=== PATIENT | male | born 1995 | race Caucasian/White ===

== ENCOUNTER 2017-01-26 21:43 | Emergency (ER) | payer SELFPAY ==
[2017-01-26 22:02] VITALS: BP 110/77
--- NOTE | 2017-01-26 23:11 | ERNOTE ---
ENT HPI Date of Service: 01/26/17 Presenting Symptoms: other - sorethroat Source: patient - Immun/Allergies/Home Medications Immunizations: IMMUNIZATION HX Immunizations Up to Date Yes History of Influenza Vaccine No Hx Pneumococcal Vaccination No Allergies/Adverse Reactions: Allergies Allergy/AdvReac Type Severity Reaction Status Date / Time Penicillins Allergy Verified 01/26/17 22:02 Home Medications: HOME MEDICATIONS Albuterol Sulfate [Albuterol Sulfate 2.5 MG/3 ML] 2.5 mg IH Q4H 01/26/17 [Last Taken Unknown] - History of Present Illness Narrative: 21 year old that has had a sore throat for two days, which is getting worse. No complaints of fevers, chills or ear pain. There has been a runny nose. Severity: Present: mild ENT Location: Present: throat Prearrival Treatment: Present: no prearrival treatment Modifying Factors - Improves: Reports: nothing Modifying Factors - Worsens: Reports: nothing Associated Symptoms - ENT: Reports: denies symptoms Review of Systems - Review of Systems Constitutional: Present: no symptoms reported EYE: Present: no symptoms reported ENT: Present: See HPI Respiratory: Present: no symptoms reported Cardiology: Present: no symptoms reported Gastrointestinal/Abdominal: Present: no symptoms reported Genitourinary: Present: no symptoms reported Musculoskeletal: Present: no symptoms reported Skin: Present: no symptoms reported Neurological: Present: no symptoms reported Endocrine: Present: no symptoms reported Hematologic/Lymphatic: Present: no symptoms reported Psych: Present: no symptoms reported - Patient's Past Medical History Patient History - Medical: GERD, Migraines Patient History - Cardiac/Respiratory: Asthma Patient History - Cancer: No Hx of Cancer Patient History - Surgical Procedures: Other Patient History - Other: None - Family History Mother Family History - Medical: History Unknown Father Family History - Medical: Diabetes Type 1 Family History - Cardiac/Respiratory: Hypertension - Social History Living Situations: home Abuse History: No History of abuse Psych History: No pertinent hx Smoking Status: Current every day smoker Alcohol Use: occasionally Drug Use: none - Immunizations Immunizations Up to Date: Yes Hx Pneumococcal Vaccination: No History of Influenza Vaccine: No Physical Exam - Physical Exam General Appearance: Present: no apparent distress Eye Exam: Normal inspection: bilateral, PERRL: bilateral Ears, Nose, Throat: Present: normal ENT inspection Neck: Present: normal inspection Respiratory: Present: no respiratory distress Gastrointestinal/Abdominal: Present: nondistended Back Exam: Present: normal inspection Extremity Exam: Present: normal inspection Neurological Exam: Present: alert, oriented, normal mood/affect Skin Exam: Present: normal color ED Progress - Results and Orders Patient's Lab Results:: I have reviewed the patient's lab results. - Vital Signs Patient's Vital Signs:: I have reviewed the patient's vital signs. Vital Signs: Vital Signs 01/26/17 21:59 Temperature 36.7 C Pulse Rate 85 Respiratory 16 Rate Blood Pressure 110/77 O2 Sat by Pulse 99 Oximetry - Progress/Reassessment Chief Complaint: Sore Throat Progress:: Unchanged Departure Clinical Impression: Pharyngitis - Departure Disposition: Home self-care Condition: Good Instructions: Pharyngitis, [id number] Print Language: Panamanian Additional Instructions: Follow up with your physician as needed. Gargle with salt water as needed. you can take Tylenol or Motrin for pain relief.
--- OUTSIDE RECORDS SUMMARY | 2017-01-26 23:15 | XMS REPORT | Continuity of Care Document ---
:1995 Author Organization [facility] ([facility]) Address [address] [place] [address] Phone [phone] Care Team Providers Name Role Phone [facility] Primary Care Provider [phone] Source Comments This disclosure is being made pursuant to the Care Everywhere program, applicable federal and state laws, and may not contain all informaitonavailable regarding this patient.[facility] ([facility]) Active Allergies and Adverse Reactions Allergen Noted Date Severity Reactions Comments Penicillins 03/08/2010 Rash Current Medications Prescription Sig. Disp. Refills Start Date End Date Status ALBUTEROL INHL use by inhalation. Active docusate (COLACE) 100 Take 1 Cap by mouth 2 60 Cap 1 11/14/2011 Active mg capsule times daily. Indications: Constipation aspirin 325 mg EC Take 1 Tab by mouth 60 Tab 0 11/14/2011 Active tablet daily. Indications: dvt proph hydrOXYzine pamoate Take 1-2 Caps by 60 Cap 0 11/28/2011 Active (VISTARIL) 25 mg mouth 4 times daily capsule as needed for Other. 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 Pulse 112 11/14/2011 8:00 AM WATER QUALITY CONTROL ENGINEER Temperature 37.3 C (99.1 F) 11/14/2011 8:00 AM WATER QUALITY CONTROL ENGINEER Respiratory Rate 20 11/14/2011 11:19 AM WATER QUALITY CONTROL ENGINEER Height 1.778 m (5' 10") 11/13/2011 10:20 AM WATER QUALITY CONTROL ENGINEER Weight 80.4 kg (177 lb 4 oz) 11/13/2011 10:20 AM WATER QUALITY CONTROL ENGINEER Body Mass Index 25.43 11/13/2011 10:20 AM WATER QUALITY CONTROL ENGINEER Oxygen Saturation 99% 11/14/2011 8:00 AM WATER QUALITY CONTROL ENGINEER Plan of Care Health Maintenance Due Date Last Done Comments Hepatitis B Vaccine (1 of 3 - Primary Series) 1994 HPV Vaccine (1 of 3 - Male 3 Dose Series) 2005 Tdap Vaccine 2005 Lipid Disorder Screening 2012 MMR Vaccine 2012 Td Vaccine 2012 Varicella Vaccine (1 of 2 - Adult - No Evidence of 2012 Immunity) Influenza Vaccine: Seasonal (#1) 05/13/2016 Results from Last 3 Months Not on file
== END 2017-01-26 23:12 | disposition home or self-care (01) ==
LOC: ER 21:43
DX: J02.9 Acute pharyngitis, unspecified (principal); F17.210 Nicotine dependence, cigarettes, uncomplicated; J45.909 Unspecified asthma, uncomplicated

== ENCOUNTER 2017-03-13 14:17 | Emergency (ER) | payer OTHER ==
--- NOTE | 2017-03-13 15:51 | ERNOTE ---
Upper Extremity HPI - Narrative Date of Service: 03/13/17 - General Time Seen by Provider: 03/13/17 15:40 Source: patient, family Exam Limitations: no limitations - Immun/Allergies/Home Medications Immunizations: IMMUNIZATION HX Immunizations Up to Date Yes History of Influenza Vaccine No Hx Pneumococcal Vaccination No Allergies/Adverse Reactions: Allergies Allergy/AdvReac Type Severity Reaction Status Date / Time Penicillins Allergy Verified 03/13/17 14:39 Home Medications: HOME MEDICATIONS Albuterol Sulfate [Albuterol Sulfate 2.5 MG/3 ML] 2.5 mg IH Q4H 01/26/17 [Last Taken Unknown] - History of Present Illness Narrative: pt smashed his left hand this am at work and complains of left hand pain. Review of Systems - Review of Systems Constitutional: Present: no symptoms reported EYE: Present: no symptoms reported ENT: Present: no symptoms reported Respiratory: Present: no symptoms reported Cardiology: Present: no symptoms reported Gastrointestinal/Abdominal: Present: no symptoms reported Genitourinary: Present: no symptoms reported Musculoskeletal: Present: See HPI - Patient's Past Medical History Patient History - Medical: GERD, Migraines Patient History - Cardiac/Respiratory: Asthma Patient History - Cancer: No Hx of Cancer Patient History - Surgical Procedures: Other Patient History - Other: None - Family History Mother Family History - Medical: History Unknown Father Family History - Medical: Diabetes Type 1 Family History - Cardiac/Respiratory: Hypertension - Social History Living Situations: home Abuse History: No History of abuse Psych History: No pertinent hx Smoking Status: Current every day smoker Alcohol Use: occasionally Drug Use: none - Immunizations Immunizations Up to Date: Yes Hx Pneumococcal Vaccination: No History of Influenza Vaccine: No Physical Exam - Physical Exam General Appearance: Present: wd/wn, alert, no apparent distress Respiratory: Present: no respiratory distress, normal breath sounds, no accessory muscle use, chest nontender, lungs clear Cardiovascular/Chest: Present: regular rate, rhythm, no murmur, normal peripheral pulses Extremity Exam: Present: other - there is slight flexion of the left pinky finger at the PIP joint of left hand also there is a blood filled vesicle at the tip of the pinky digit ED Progress - Vital Signs Patient's Vital Signs:: I have reviewed the patient's vital signs. Vital Signs: Vital Signs 03/13/17 14:35 Temperature 37.2 C Pulse Rate 100 Respiratory 16 Rate Blood Pressure 119/71 O2 Sat by Pulse 97 Oximetry - X-Ray X-Ray #1 X-Ray: hand - Progress/Reassessment Chief Complaint: Hand Injury/Pain Plan - Plan Plan: case discussed with Dr. Clark. will immobilize and send to clinic Departure Clinical Impression: Fracture of proximal phalanx of digit of left hand Qualifiers: Encounter type: initial encounter Fracture type: closed Qualified Code(s): S62.619A - Displaced fracture of proximal phalanx of unspecified finger, initial encounter for closed fracture - Departure Disposition: Home self-care Condition: Good Instructions: Crush Injury, Fingers or Toes, [id number] Additional Instructions: please follow up with Dr. Clark in clinic on Friday03/18/17
--- OUTSIDE RECORDS SUMMARY | 2017-03-13 15:56 | XMS REPORT | Continuity of Care Document ---
:1995 Author Organization [facility] ([facility]) Address [address] [place] [address] Phone [phone] Care Team Providers Name Role Phone [facility] Primary Care Provider [phone] Source Comments This disclosure is being made pursuant to the Care Everywhere program, applicable federal and state laws, and may not contain all informaitonavailable regarding this patient.[facility] (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
[2017-03-13 17:17] VITALS: BP 108/69
== END 2017-03-13 17:10 | disposition home or self-care (01) ==
LOC: ER 14:17
PROC: 2W3FX1Z Immobilization of Left Hand using Splint (ICD-10-PCS; principal; 2017-03-13)
DX: S62.619A Displaced fracture of proximal phalanx of unspecified finger, initial encounter for closed fracture (principal); X58.XXXA Exposure to other specified factors, initial encounter; Y93.9 Activity, unspecified; Y92.9 Unspecified place or not applicable; Y99.0 Civilian activity done for income or pay; Z72.0 Tobacco use

== ENCOUNTER 2017-04-27 18:00 | Emergency (ER) | payer SELFPAY ==
[2017-04-27 18:25] LABS: Hematocrit 45.9 % (42.0-52.0); Hemoglobin 15.8 gm/dL (13.5-18.0); Mean Cell Volume 86.1 fl (78-100); Mean Corpuscular Hemoglobin 29.6 pg (27-31); Mean Corpuscular Hgb Conc 34.4 g/dl (32-36); Mean Platelet Volume 9.6 fl (6.0-9.5); Neutrophil # 4.8 K/mm3 (1.3-6.0); Neutrophil % 64.6 % (42-75.0); Platelet Count 270 K/mm3 (150-450); Red Blood Count 5.33 M/mm3 (4.7-6.0); Red Cell Distribution Width 11.9 % (11.5-14.0); White Blood Count 7.5 K/mm3 (4.0-10.5)
[2017-04-27 18:39] LABS: Urine Appearance Clear; Urine Bilirubin Negative (NEGATIVE); Urine Blood Negative /ul (NEGATIVE); Urine Color Yellow; Urine Ketone Negative (NEGATIVE); Urine Nitrite Negative (NEGATIVE); Urine Protein Negative (NEGATIVE); Urine Urobilinogen Normal (NORMAL); Urine pH 5.5 pH (5.0-7.0)
[2017-04-27 18:40] LABS: Urine Bacteria None Seen; Urine RBC None Seen /hpf (0-5); Urine WBC 0-5 /hpf (0-5)
[2017-04-27 18:43] LABS: BUN/Creatinine Ratio 10.5 (9.0-21.6); Bilirubin, Total 0.4 mg/dL (0.0-1.1); Ca. Corrected For Albumin 8.4 mg/dL (8.4-10.2); Calcium * 8.7 mg/dL (7.9-10.9); Carbon Dioxide 28.1 mmol/L (24-32.6); Potassium 4.1 mmol/L (3.4-4.6); Total Protein 7.7 gm/dL (6.2-8.2)
--- NOTE | 2017-04-27 19:19 | ERNOTE ---
Medical Problem HPI - General Chief Complaint: Nausea/Vomiting Time Seen by Provider: 04/27/17 19:01 Source: patient Exam Limitations: no limitations - Immun/Allergies/Home Medications Immunizations: IMMUNIZATION HX Immunizations Up to Date Yes History of Influenza Vaccine No Hx Pneumococcal Vaccination No Allergies/Adverse Reactions: Allergies Penicillins Allergy (Verified 04/27/17 18:06) Home Medications: HOME MEDICATIONS Albuterol Sulfate [Albuterol Sulfate 2.5 MG/3 ML] 2.5 mg IH Q4H 01/26/17 [Last Taken Unknown] - History of Present History Narrative: Patient went to a [employer] last night, went to work at 06:00 this morning and started to vomit an hour later, last vomited at 10:00, no diarrhea, left sided abdominal pain Review of Systems - Review of Systems Constitutional: Absent: recent illness, fever ENT: Absent: nose congestion, sore throat Respiratory: Absent: shortness of breath Cardiology: Absent: chest pain Gastrointestinal/Abdominal: Present: See HPI, nausea, vomiting. Absent: diarrhea, abdominal pain Genitourinary: Present: no symptoms reported Musculoskeletal: Absent: back pain Skin: Absent: rash Neurological: Present: headache. Absent: weakness, numbness - Patient's Past Medical History Patient History - Medical: Migraines Patient History - Cardiac/Respiratory: Asthma Patient History - Cancer: No Hx of Cancer Patient History - Surgical Procedures: Orthopedic Patient History - Other: None - Family History Mother Family History - Medical: History Unknown Father Family History - Medical: Diabetes Type 1 Family History - Cardiac/Respiratory: Hypertension - Social History Living Situations: home Abuse History: No History of abuse Psych History: No pertinent hx Smoking Status: Current every day smoker Alcohol Use: occasionally Drug Use: none - Immunizations Immunizations Up to Date: Yes Hx Pneumococcal Vaccination: No History of Influenza Vaccine: No Physical Exam - Physical Exam General Appearance: Present: wd/wn, alert, no apparent distress Respiratory: Present: no respiratory distress, normal breath sounds, lungs clear Cardiovascular/Chest: Present: regular rate, rhythm, no murmur Gastrointestinal/Abdominal: Present: normal bowel sounds - very active, nondistended, soft, tenderness - left sided, mild Neurological Exam: Present: alert, oriented, normal mood/affect Skin Exam: Present: normal color, warm/dry ED Progress - Results and Orders Patient's Lab Results:: I have reviewed the patient's lab results. - Vital Signs Patient's Vital Signs:: I have reviewed the patient's vital signs. Vital Signs: Vital Signs 04/27/17 18:03 Temperature 36.6 C Pulse Rate 90 Respiratory 16 Rate Blood Pressure 135/79 O2 Sat by Pulse 98 Oximetry - X-Ray X-Ray #1 X-Ray: abdomen - no acute Interpretation: Interp. by me - Progress/Reassessment Chief Complaint: Nausea/Vomiting Progress Note-Subjective: 04/27/17 19:09 discussed test results, patient tolerates water Departure - Departure Clinical Impression: Gastroenteritis Disposition: Home self-care Condition: Good Instructions: Food Poisoning, [id number], Form - Excuse from Work, School, or Physical Activity Referrals: Vincent Luke MD [Staff Physician] -
[2017-04-27 19:25] VITALS: BP 149/61
== END 2017-04-27 19:13 | disposition home or self-care (01) ==
LOC: ER 18:00
DX: K52.9 Noninfective gastroenteritis and colitis, unspecified (principal); Z72.0 Tobacco use